=== PATIENT | female | born 2000 | race Hispanic/Latino ===

== ENCOUNTER 2019-11-23 14:35 | Emergency (ER) | payer OTHER, SELFPAY ==
--- NOTE | 2019-11-23 15:27 | RAD REPORT ---
EXAM DESCRIPTION: CT - Soft Tissue Neck W/Contr CLINICAL HISTORY: r/o abscess Pain and swelling in the neck. COMPARISON: No comparisons TECHNIQUE All CT scans are performed using dose optimization technique as appropriate and may includ e automated exposure control or mA/KV adjustment according to patient size. FINDINGS: Nasopharyngeal tissues are normal in appearance. Fossa Rosenmller are normal. Prevertebral soft tissues are normal in thickness. No fluid present. Evidence of mildly prominent lymph nodes throughout the neck bilaterally. Symmetric salivary glands n oted. No abscess is identified in the peritonsillar regions or elsewhere. Thyroid gland is normal sized. IMPRESSION: Cervical lymphadenitis pattern is seen without abscess.
--- NOTE | 2019-11-23 16:53 | EDPHYS ---
Physician Documentation [facility] Name: Debora Negrete Age: 19 yrs Sex: Female : 2000 Arrival Date: 11/23/2019 Time: 14:39 Bed 26 Private MD: ED Physician John Kuo HPI: 11/23 14:55 This 19 yrs old Female presents to ER via Ambulatory with complaints of Bump kb on neck. 14:55 The patient or guardian complains of pain, that is acute, swelling, tenderness, mass. kb The symptoms are located on the left submandibular area. Onset: The symptoms/episode began/occurred 4 day(s) ago. Context: The problem was sustained at home. Associated signs and symptoms: The patient has no apparent associated signs or symptoms, Pertinent negatives: fever. The pain does not radiate. Modifying factors: The symptoms are alleviated by nothing. the symptoms are aggravated by pressure. Severity of symptoms: At their worst the symptoms were moderate, in the emergency department the symptoms are unchanged. The patient has not experienced similar symptoms in the past. The patient has not recently seen a physician. 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 - Coronavirus screen:: The patient has NOT traveled to [place] in the past 14 days. The patient has NOT had contact with known/suspected case of Coronavirus? Proceed with normal triage procedures. - Social history:: Smoking status: Patient denies any tobacco usage or history of. - Ebola Screening: : No symptoms or risks identified at this time. ROS: 14:54 Constitutional: Negative for fever, chills, and weight loss, ENT: Negative for injury, kb pain, and discharge, Cardiovascular: Negative for chest pain, palpitations, and edema, Respiratory: Negative for shortness of breath, cough, wheezing, and pleuritic chest pain, Abdomen/GI: Negative for abdominal pain, nausea, vomiting, diarrhea, and constipation, Back: Negative for injury and pain, MS/Extremity: Negative for injury and deformity, Skin: Negative for injury, rash, and discoloration, Neuro: Negative for headache, weakness, numbness, tingling, and seizure. 14:54 Neck: Positive for swelling, tenderness, of the left submandibular area. Exam: 14:54 Constitutional: This is a well developed, well nourished patient who is awake, alert, kb and in no acute distress. Head/Face: Normocephalic, atraumatic. ENT: Nares patent. No nasal discharge, no septal abnormalities noted. Tympanic membranes are normal and external auditory canals are clear. Oropharynx with no redness, swelling, or masses, exudates, or evidence of obstruction, uvula midline. Mucous membranes moist. Chest/axilla: Normal chest wall appearance and motion. Nontender with no deformity. No lesions are appreciated. Cardiovascular: Regular rate and rhythm with a normal S1 and S2. No gallops, murmurs, or rubs. Normal PMI, no JVD. No pulse deficits. Respiratory: Lungs have equal breath sounds bilaterally, clear to auscultation and percussion. No rales, rhonchi or wheezes noted. No increased work of breathing, no retractions or nasal flaring. Abdomen/GI: Soft, non-tender, with normal bowel sounds. No distension or tympany. No guarding or rebound. No evidence of tenderness throughout. Skin: Warm, dry with normal turgor. Normal color with no rashes, no lesions, and no evidence of cellulitis. MS/ Extremity: Pulses equal, no cyanosis. Neurovascular intact. Full, normal range of motion. Neuro: Awake and alert, GCS 15, oriented to person, place, time, and situation. Cranial nerves II-XII grossly intact. Motor strength 5/5 in all extremities. Sensory grossly intact. Cerebellar exam normal. Normal gait. 14:54 Neck: External neck: mass, that is small, of the left submandibular area, that is tender to palpation. Vital Signs: 14:44 BP 139 / 80; Pulse 68; Resp 16; Temp 97.1; Pulse Ox 99% on R/A; Weight 74.39 kg; Height hb 5 ft. 4 in. (162.56 cm); Pain 8/10; 15:31 BP 131 / 77; Pulse 72; Resp 18; Pulse Ox 100% on R/A; wh 14:44 Body Mass Index 28.15 (74.39 kg, 162.56 cm) MDM: 14:46 Patient medically screened. kb 14:54 Data reviewed: vital signs, nurses notes. Data interpreted: Pulse oximetry: on room air kb is 99 %. Interpretation: normal. 15:46 Counseling: I had a detailed discussion with the patient and/or guardian regarding: the kb historical points, exam findings, and any diagnostic results supporting the discharge/admit diagnosis, radiology results, the need for outpatient follow up, a family practitioner, to return to the emergency department if symptoms worsen or persist or if there are any questions or concerns that arise at home. 11/23 14:49 Order name: CT Soft Tissue Neck W/contr; Complete Time: 16:01 kb 11/23 14:49 Order name: IV Start; Complete Time: 15:11 kb Administered Medications: No medications were administered Disposition: 16:21 Co-signature as Attending Physician, John Kuo MD I agree with the assessment and kdr plan of care. Disposition: 11/23/19 15:47 Discharged to Home. Impression: Acute lymphadenitis of face, head and neck. - Condition is Stable. - Discharge Instructions: Lymphadenopathy. - Medication Reconciliation Form, Thank You Letter, Antibiotic Education, Prescription Opioid Use form. - Follow up: Emergency Department; When: As needed; Reason: Worsening of condition. Follow up: Private Physician; When: 2 - 3 days; Reason: Recheck today's complaints, Continuance of care, Re-evaluation by your physician. 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 Impression: Acute lymphadenitis of face, wh head and neck. Condition is Stable. Forms are Medication Reconciliation Form, Thank You Letter, Antibiotic Education, Prescription Opioid Use. Follow up: Emergency Department; When: As needed; Reason: Worsening of condition. Follow up: Private Physician; When: 2 - 3 days; Reason: Recheck today's complaints, Continuance of care, Re-evaluation by your physician. kb
--- NOTE | 2019-11-23 16:53 | ER ---
Nurse's Notes [facility] Name: Debora Negrete Age: 19 yrs Sex: Female : 2000 Arrival Date: 11/23/2019 Time: 14:39 Bed 26 Private MD: Diagnosis: Acute lymphadenitis of face, head and neck Presentation: 11/23 14:43 Presenting complaint: Left sided neck pain and swelling x 4 days. Transition of care: hb patient was not received from another setting of care. Onset of symptoms was November 19, 2019. Risk Assessment: Do you want to hurt yourself or someone else? Patient reports no desire to harm self or others. Care prior to arrival: None. 14:43 Method Of Arrival: Ambulatory 14:43 Acuity: MELY 3 15:28 Initial Sepsis Screen: Does the patient meet any 2 criteria? No. Patient's initial sepsis screen is negative. Does the patient have a suspected source of infection? No. Patient's initial sepsis screen is negative. 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 - Coronavirus screen:: The patient has NOT traveled to [place] in the past 14 days. The patient has NOT had contact with known/suspected case of Coronavirus? Proceed with normal triage procedures. - Social history:: Smoking status: Patient denies any tobacco usage or history of. - Ebola Screening: : No symptoms or risks identified at this time. Screenin:28 Abuse screen: Denies threats or abuse. Denies injuries from another. Nutritional screening: No deficits noted. Tuberculosis screening: No symptoms or risk factors identified. Fall Risk None identified. Assessment: 15:27 General: Appears in no apparent distress. Behavior is calm, cooperative, appropriate for age. Pain: Complains of pain in left submandibular area Pain does not radiate. Neuro: Level of Consciousness is awake, alert, obeys commands, Oriented to person, place, time, situation, Appropriate for age. Cardiovascular: Capillary refill < 3 seconds. Respiratory: Airway is patent Respiratory effort is even, unlabored, Respiratory pattern is regular, symmetrical. GI: Abdomen is flat, non-distended. : No signs and/or symptoms were reported regarding the genitourinary system. EENT: lump in submandibular area. Derm: Skin is intact, is healthy with good turgor, Skin is pink, warm \T\ dry. normal. Musculoskeletal: Circulation, motion, and sensation intact. Vital Signs: 14:44 BP 139 / 80; Pulse 68; Resp 16; Temp 97.1; Pulse Ox 99% on R/A; Weight 74.39 kg; Height hb 5 ft. 4 in. (162.56 cm); Pain 8/10; 15:31 BP 131 / 77; Pulse 72; Resp 18; Pulse Ox 100% on R/A; wh 14:44 Body Mass Index 28.15 (74.39 kg, 162.56 cm) hb ED Course: 14:39 Patient arrived in ED. mr 14:42 Ayse Light FNP-C is PHCP. kb 14:42 John Kuo MD is Attending Physician. kb 14:43 Triage completed. hb 14:44 Arm band placed on. hb 15:00 Inserted saline lock: 20 gauge in right antecubital area, using aseptic technique. wh 15:23 CT Soft Tissue Neck W/contr In Process Unspecified. EDMS 15:27 Magdalena Jacobs is Primary Nurse. 15:28 Patient has correct armband on for positive identification. Bed in low position. Call wh light in reach. Side rails up X 1. Pulse ox on. NIBP on. 16:05 No provider procedures requiring assistance completed. IV discontinued, intact, wh bleeding controlled, No redness/swelling at site. Administered Medications: No medications were administered Outcome: 15:47 Discharge ordered by . kb 16:05 Discharged to home ambulatory, with friend. wh 16:05 Condition: stable 16:05 Discharge instructions given to patient, Instructed on discharge instructions, follow up and referral plans. POC Demonstrated understanding of instructions, follow-up care, POC 16:06 Patient left the ED. Signatures: Dispatcher [employer] EDMS Ayse Light FNP-C FNP-Ckb Rivera, Mary Carol Sheppard, RN RN Magdalena Jacobs Corrections: (The following items were deleted from the chart) 14:54 14:43 Acuity: MELY 4 hb hb
[2019-11-23 17:23] VITALS: TEMP 97.1
[2019-11-23 17:25] VITALS: BP 131/77; O2SAT 100
== END 2019-11-23 16:06 | disposition home or self-care (01) ==
LOC: ER 14:35
DX: L04.0 Acute lymphadenitis of face, head and neck (principal)
CPT/HCPCS: 70491; 99283

== ENCOUNTER 2019-11-25 | Emergency (ER) | payer OTHER, SELFPAY ==
--- NOTE | 2019-11-25 17:37 | ER ---
Nurse's Notes [facility] Name: Debora Negrete Age: 19 yrs Sex: Female : 2000 Arrival Date: 11/25/2019 Time: 17:16 Bed 19 Private MD: Diagnosis: Cellulitis of external ear, unspecified ear Presentation: 11/25 17:17 Presenting complaint: Patient states: on Saturday i came here to know what this bump was tw2 on my lower LEFT neck and they said it was a swollen lymph node and now i am having LEFT ear pain, they told me i had an infection but didn't tell me what kind, on Saturday i was not having the ear pain, i put a cotton ball to help with a little bit of alcohol on it and it lessens it a little bit. Transition of care: patient was not received from another setting of care. Onset of symptoms was November 25, 2019. Risk Assessment: Do you want to hurt yourself or someone else? Patient reports no desire to harm self or others. Initial Sepsis Screen: Does the patient meet any 2 criteria? No. Patient's initial sepsis screen is negative. Does the patient have a suspected source of infection? No. Patient's initial sepsis screen is negative. Care prior to arrival: None. 17:17 Method Of Arrival: Ambulatory tw2 17:17 Acuity: MELY 4 tw2 Triage Assessment: 17:19 General: Appears in no apparent distress. Behavior is calm, cooperative, appropriate tw2 for age. Pain: Complains of pain in left ear. EENT: Reports pain in left ear. 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 - Coronavirus screen:: The patient has NOT traveled to [place] in the past 14 days. - Social history:: Smoking status: . - Ebola Screening: : Patient denies travel to an Ebola-affected area in the 21 days before illness onset. Screenin:27 Abuse screen: Denies threats or abuse. Denies injuries from another. Nutritional ls4 screening: No deficits noted. Tuberculosis screening: No symptoms or risk factors identified. Fall Risk None identified. Assessment: 17:26 General: Appears in no apparent distress. Pain: Complains of pain in left ear Pain ls4 currently is 7 out of 10 on a pain scale. Neuro: No deficits noted. Cardiovascular: No deficits noted. Respiratory: No deficits noted. GI: No deficits noted. : No deficits noted. Derm: No deficits noted. Musculoskeletal: No deficits noted. Vital Signs: 17:20 BP 114 / 74; Pulse 74; Resp 17; Temp 97.8(TE); Pulse Ox 100% on R/A; Weight 72.57 kg tw2 (R); Height 5 ft. 4 in. (162.56 cm); Pain 7/10; 17:20 Body Mass Index 27.46 (72.57 kg, 162.56 cm) tw2 ED Course: 17:16 Patient arrived in ED. as 17:17 Hugh Hahn FNP-C is [facility]. la1 17:17 John Kuo MD is Attending Physician. la1 17:19 Triage completed. tw2 17:19 Arm band placed on. tw2 17:26 Jeannette Arenas, JOS is Primary Nurse. ls4 17:27 Patient has correct armband on for positive identification. Bed in low position. Call ls4 light in reach. Side rails up X 1. Verbal reassurance given. 17:50 No provider procedures requiring assistance completed. Patient did not have IV access ls4 during this emergency room visit. Administered Medications: No medications were administered Outcome: 17:35 Discharge ordered by . la1 17:50 Discharged to home ambulatory, with family. ls4 17:50 Condition: good 17:50 Discharge instructions given to patient, family, Instructed on discharge instructions, follow up and referral plans. medication usage, Demonstrated understanding of instructions, follow-up care, medications, Prescriptions given X 1. 17:51 Patient left the ED. ls4 Signatures: Nori Combs as Hugh Hahn FNP-C FNP-Cla1 Fabiana Gregg RN RN tw2 Jeannette Arenas RN RN ls4
--- NOTE | 2019-11-25 17:37 | EDPHYS ---
Physician Documentation [facility] Name: Debora Negrete Age: 19 yrs Sex: Female : 2000 Arrival Date: 11/25/2019 Time: 17:16 Bed 19 Private MD: ED Physician John Kuo HPI: 11/25 17:32 This 19 yrs old Female presents to ER via Ambulatory with complaints of Ear la1 Pain. 17:32 The patient presents with pain, mild. The complaints affect the left ear canal and left la1 preauricular area. Onset: The symptoms/episode began/occurred 2 day(s) ago. Modifying factors: The symptoms are alleviated by nothing, the symptoms are aggravated by nothing. Associated signs and symptoms: Pertinent positives: periauricular lymph node swelling present. Severity of symptoms: At their worst the symptoms were mild. The patient has not experienced similar symptoms in the past. 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 - Coronavirus screen:: The patient has NOT traveled to [place] in the past 14 days. - Social history:: Smoking status: . - Ebola Screening: : Patient denies travel to an Ebola-affected area in the 21 days before illness onset. ROS: 17:33 Constitutional: Negative for fever, chills, and weight loss, ENT: Negative for injury, la1 pain, and discharge, Neck: Negative for injury, pain, and swelling, Cardiovascular: Negative for chest pain, palpitations, and edema, Respiratory: Negative for shortness of breath, cough, wheezing, and pleuritic chest pain, Abdomen/GI: Negative for abdominal pain, nausea, vomiting, diarrhea, and constipation, Back: Negative for injury and pain, : Negative for injury, bleeding, discharge, and swelling, MS/Extremity: Negative for injury and deformity, Neuro: Negative for headache, weakness, numbness, tingling, and seizure. 17:33 ENT: Positive for ear pain. Exam: 17:33 Constitutional: This is a well developed, well nourished patient who is awake, alert, la1 and in no acute distress. Head/Face: Normocephalic, atraumatic. Eyes: Pupils equal round and reactive to light, extra-ocular motions intact. Lids and lashes normal. Conjunctiva and sclera are non-icteric and not injected. Cornea within normal limits. Periorbital areas with no swelling, redness, or edema. ENT: Nares patent. No nasal discharge, no septal abnormalities noted. Tympanic membranes are normal and external auditory canals are clear. Mild redness to distal left external ear canal with tenderness. Oropharynx with no redness, swelling, or masses, exudates, or evidence of obstruction, uvula midline. Mucous membranes moist. Chest/axilla: Normal chest wall appearance and motion. Nontender with no deformity. No lesions are appreciated. Skin: Warm, dry with normal turgor. Normal color with no rashes, no lesions, and no evidence of cellulitis. MS/ Extremity: Pulses equal, no cyanosis. Neurovascular intact. Full, normal range of motion. Neuro: Awake and alert, GCS 15, oriented to person, place, time, and situation. Vital Signs: 17:20 BP 114 / 74; Pulse 74; Resp 17; Temp 97.8(TE); Pulse Ox 100% on R/A; Weight 72.57 kg tw2 (R); Height 5 ft. 4 in. (162.56 cm); Pain 7/10; 17:20 Body Mass Index 27.46 (72.57 kg, 162.56 cm) tw2 MDM: 17:26 Patient medically screened. la1 17:36 Data reviewed: vital signs, nurses notes, and as a result, I will discharge patient. la1 Data interpreted: Pulse oximetry: on room air is 100 %. Interpretation: normal. Counseling: I had a detailed discussion with the patient and/or guardian regarding: the historical points, exam findings, and any diagnostic results supporting the discharge/admit diagnosis, the need for outpatient follow up, a family practitioner, to return to the emergency department if symptoms worsen or persist or if there are any questions or concerns that arise at home. Administered Medications: No medications were administered Disposition: 18:59 Co-signature as Attending Physician, John Kuo MD I agree with the assessment and kdr plan of care. Disposition: 11/25/19 17:35 Discharged to Home. Impression: Cellulitis of external ear, unspecified ear. - Condition is Stable. - Discharge Instructions: Cellulitis, Adult, Lymphadenopathy. - Prescriptions for Keflex 500 mg Oral Capsule - take 1 capsule by ORAL route every 6 hours for 7 days; 28 capsule. - Medication Reconciliation Form, Thank You Letter, Antibiotic Education form. - Follow up: Private Physician; When: As needed. - Problem is new. - Symptoms are unchanged. Signatures: John Kuo MD MD [facility] Hugh Hahn FNP-C TANK STORAGE SUPERVISOR-Cla1 Fabiana Gregg, RN RN tw2 Jeannette Arenas, RN RN ls4 Corrections: (The following items were deleted from the chart) 17:51 17:35 11/25/2019 17:35 Discharged to Home. Impression: Cellulitis of external ear, ls4 unspecified ear. Condition is Stable. Forms are Medication Reconciliation Form, Thank You Letter, Antibiotic Education, Prescription Opioid Use. Follow up: Private Physician; When: As needed. Problem is new. Symptoms are unchanged. la1
== END 2019-11-25 17:51 | disposition home or self-care (01) ==
DX: H60.12 Cellulitis of left external ear (principal)
CPT/HCPCS: 99282